=== PATIENT | female | born 1935 | race Caucasian/White ===

== ENCOUNTER 2016-05-18 23:22 | Emergency (ER) | payer MEDICARE, BC ==
[2016-01-24 14:07] VITALS: BMI 25.5
[~2016-05-18 23:22] MED LIST: CENTRUM COMPLE1 EACH PO; CYCLOBENZAPRINE5 MG; MOBIC7.5 MG PO; NASAL SPRAY; NORVASC5 MG PO; OMEPRAZOLE20 M1 PO; OYSCO 500+D TAB1 TAB PO; PRESERVISION AR1 CAP PO; PROTONIX40 MG PO; QVAR8.7 G1 INH; VITAMIN D3400 UNI1 PO; [UNRECOGNIZED DRUG - OTHER]
[2016-05-19 00:39] LABS: BASOPHILS 0.3 % (0.0-2.0); HEMOGLOBIN 13.3 g/dL (12-16); IMMATURE GRANULOCYTES 0.1 % (0-5); LYMPHOCYTES 27.1 % (15-50); MCH 29.3 pg (26.0-34.0); MCHC 33.3 g/dL (31.0-37.0); MCV 88.1 fL (80.0-100.0); MEAN PLATELET VOLUME 10.1 fL (7.4-10.4); MONOCYTES 9.9 % (2-11); NEUTROPHILS 60.6 % (40-80); RBC 4.54 10x6/uL (4.00-5.40); RDW 13.5 % (11.5-14.5); WBC 6.9 10x3/uL (4.8-10.8)
[2016-05-19 00:54] LABS: PLATELET COUNT 217 10x3/uL (130-400)
[2016-05-19 01:11] LABS: ALBUMIN 3.8 g/dL (3.4-5.0); ALKALINE PHOSPHATASE 56 U/L (46-116); ALT (SGPT) 26 U/L (10-68); BILIRUBIN - TOTAL 0.46 mg/dL (0.2-1.3); CALC OSMOLALITY 286 mosm/kg (275-300); CALCIUM 8.6 mg/dL (8.5-10.1); CARBON DIOXIDE 31.5 mmol/L (21.0-32.0); CHLORIDE - SERUM 106 mmol/L (98-107); CREATININE - SERUM 0.7 mg/dL (0.6-1.3); GLUCOSE 110 mg/dL (74-106); POTASSIUM - SERUM 3.8 mmol/L (3.5-5.1); PROTEIN - SERUM 6.9 g/dL (6.4-8.2); SODIUM 144 mmol/L (136-145); UREA NITROGEN 11 mg/dL (7-18); eGFR NON AFRICAN AMERICAN 85 mL/min (90-120)
== END 2016-05-19 02:40 | disposition home or self-care (01) ==
LOC: D.ER 23:22
PROVIDERS: Family Medicine
DX: I10 Essential (primary) hypertension (principal); K21.9 Gastro-esophageal reflux disease without esophagitis

== ENCOUNTER 2016-08-06 12:38 | Outpatient (CLI) | payer MEDICARE, BC ==
[2016-08-06 13:30] VITALS: BP 105/72; Ht 154.9 cm
== END 2016-08-06 14:30 | disposition home or self-care (01) ==
LOC: D.OPS 12:38
DX: M81.0 Age-related osteoporosis without current pathological fracture (principal)